=== PATIENT | male | born 1990 | race Caucasian/White ===

== ENCOUNTER 2016-08-16 13:51 | Emergency (ER) | payer MEDICAID, OTHER ==
[2016-08-16 13:57] VITALS: RESP 16
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
--- NOTE | 2016-08-16 16:18 | DX ---
Left Tibia-Fibula and Left Ankle Clinical History: 25-year-old male with left lower leg pain after a fall. Comparison Study: None. Findings: LEFT TIBIA-FIBULA (4 Views, 3:14 p.m.): There is an obliquely-oriented hairline fracture through the distal fibular diaphysis. There also appears to be a transversely-oriented nondisplaced fracture at the level of the distal fibular metaphysis. There is also a faintly perceptible longitudinally-orient ed linear lucency over the mid-tibial diaphysis, which probably is related to a vascular groove. Does the patient have any pinpoint tenderness in this location? If so, a hairline fracture could be prese nt. Impression: 1. Nondisplaced fractures involving the distal fibular diaphysis and metaphysis. 2. Probable vascular groove projected over the mid-diaphyseal portion of the tibia, although the poss ibility of a hairline fracture is not excluded. Clinical correlation is advised. LEFT ANKLE (3 Views, at 3:06 p.m.): There is soft tissue swelling seen laterally. Again noted are th e obliquely-oriented distal fibular diaphyseal and transversely-oriented distal fibular metaphyseal n ondisplaced fractures. The mortise is still maintained. The talar dome is well-contoured. The subtala r joint is normal. The base of the fifth metatarsal is unremarkable. There is a bone island projected over the distal talus. Impression: Nondisplaced fractures involving the distal fibula.
[2016-08-16 16:31] VITALS: BP 158/86; PULSE 96; TEMP 98.4; O2SAT 93
== END 2016-08-16 16:29 | disposition home or self-care (01) ==
PROC: 2W3RXYZ Immobilization of Left Lower Leg using Other Device (ICD-10-PCS; principal; 2016-08-16)
DX: S82.832A Other fracture of upper and lower end of left fibula, initial encounter for closed fracture (principal); F17.200 Nicotine dependence, unspecified, uncomplicated; X58.XXXA Exposure to other specified factors, initial encounter; Y99.8 Other external cause status; Y93.01 Activity, walking, marching and hiking
CPT/HCPCS: L4386

== ENCOUNTER 2016-10-21 02:05 | Emergency (ER) | payer MEDICAID ==
[2016-10-21 02:17] VITALS: RESP 16; TEMP 97.9
[2016-10-21] MEDS ORDERED: TDAP ADULT 0.5 ML INJ (BOOSTRIX) IM ONE (02:17)
[2016-10-21] MEDS ORDERED: SKIN ADHESIVE (DERMABOND) 1 EACH TP ONE ×2 (02:18→02:20)
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
[2016-10-21 03:08] VITALS: BP 142/80; PULSE 78; O2SAT 97
== END 2016-10-21 03:11 | disposition home or self-care (01) ==
LOC: EDUNIT#
PROC: 0HQDXZZ Repair Right Lower Arm Skin, External Approach (ICD-10-PCS; principal; 2016-10-21)
DX: S41.112A Laceration without foreign body of left upper arm, initial encounter (principal); F10.129 Alcohol abuse with intoxication, unspecified; F17.200 Nicotine dependence, unspecified, uncomplicated; Z23 Encounter for immunization; W22.8XXA Striking against or struck by other objects, initial encounter

== ENCOUNTER 2018-10-31 17:55 | Emergency (ER) | payer MEDICAID, OTHER ==
[2018-10-31] MEDS ORDERED: SILVER NITRATE APPLICATOR 1 APPL TP ONE (18:35)
--- NOTE | 2018-10-31 18:39 | EDPHY ---
General Time Seen by Provider: 10/31/18 18:17 Narrative: CLINICAL IMPRESSION: Avulsion laceration, distal tip of left thumb ASSESSMENT/PLAN: 27-year-old male presents to the emergency department with an avulsion laceration to the distal tip of the left thumb sustained on a kitchen knife at work. Tetanus up-to-date, no suturable laceration, patient was anesthetized in wound was cauterize lightly with silver nitrate and dressed. Wound care reviewed, signs and symptoms of infection discussed, warning signs return to ED outlined discharge. DIFFERENTIAL DIAGNOSIS: includes but not limited to laceration of tendon or vascular structure, underlying fracture, laceration with retained FB ED PROCEDURES: Laceration Repair Verbal consent obtained by patient. Risks discussed, including but not limited to infection, pain, retained foreign body, need for additional repair, poor cosmetic result, tendon damage, nerve damage, poor wound healing, vascular damage. Alternatives to repair discussed. Dutton protocol used to establish correct patient, procedure, equipment, student support services director, and site. Anesthesia obtained by local infiltration. Anesthetized with 1% lidocaine without epinephrine. Laceration location distal tip of left thumb, length 0.5 cm, depth 0.5 mm, Hemostasis achieved with direct pressure and silver nitrate. Wound explored through full range of motion and entire depth of wound probed and visualized with gloved finger. No suspicion for nerve damage, tendon damage, underlying fracture, vascular damage, foreign body, or contamination. Area was cleansed with Shur-Clens and irrigated with sterile saline as per protocol. No foreign body or material removed. Wound care: Clean and dry x 24 hours, gently clean with soap and water, cover with topical antibiotic ointment/bandage. CHIEF COMPLAINT: Laceration HPI: 27-year-old male right-hand dominant presents to the emergency department after he lacerated his left distal thumb on a knife at work. He is right-hand dominant. Tetanus up-to-date. No difficulty with range of motion of the thumb , and sensation intact. No other injuries PAST MEDICAL HISTORY: None reported Pertinent Past Surgical History: None reported Social History: Otherwise healthy, tetanus up-to-date REVIEW OF SYSTEMS: All other systems negative Constitutional: No fever, no chills Musculoskeletal: No deformity, no joint pain Skin: Laceration left thumb Neurological: No sensory loss or weakness, 2 point discrimination intact. PHYSICAL EXAM: General Appearance: Alert, oriented, appropriate for age, cooperative, NAD, well hydrated, non-toxic appearing, VSS, no hypoxia. Neurological: Alert and oriented x 3 Skin: Avulsion Laceration left thumb Musculoskeletal: Full range of motion of the thumb. Distal 2 point discrimination intact. MEDICAL DECISION MAKING: Patient was seen independently. Secondary supervising physician at time of evaluation was Dr. Willis. Diagnosis: Avulsion laceration, distal tip of left thumb . New, requires workup Summary: See assessment and plan for summary of ED visit Patient Progress improved, stable for discharge. - History Smoking Status: Current every day smoker - Objective Vital Signs: Initial Vital Signs Temperature (C) 37 C 10/31/18 17:58 Heart Rate 81 10/31/18 17:58 Respiratory Rate 16 10/31/18 17:58 Blood Pressure 134/72 H 10/31/18 17:58 O2 Sat (%) 96 10/31/18 17:58 O2 Delivery Mode Room Air Allergies/Adverse Reactions: fish derived [Fish derived] Allergy (Intermediate, Verified 10/21/16 02:15) ibuprofen Allergy (Verified 10/21/16 02:15) Home Medications: Medication Instructions Recorded No Medications [NO [place] 0 [place] [facility] [place] Medications Given: Discontinued Medications Silver Nitrate/Potassium Nitrate (Silver Nitrate Applicator) 1 each TP EDNOW ONE Stop: 10/31/18 18:36 Last Admin: 10/31/18 18:44 Dose: 1 each Departure - Departure Disposition: Home, Routine, Self-Care Clinical Impression: Thumb laceration Qualifiers: Encounter type: initial encounter Damage to nail status: without damage Foreign body presence: without foreign body Laterality: left Qualified Code(s): S61.012A - Laceration without foreign body of left thumb without damage to nail , initial encounter Condition: Good Instructions: Laceration (ED) Additional Instructions: DISCHARGE INSTRUCTIONS FROM YOUR DOCTOR Thank you for visiting our emergency department today. You were treated by a physician resident programs assistant today and your case was reviewed with our ED Attending physician. Please keep in mind that discharge from the emergency department does not mean that there is nothing wrong - it simply means that we have not identified an emergency condition that requires further evaluation or treatment in the hospital. You should always plan to follow up with primary care for re- evaluation of your condition in the next 2-3 days. If you have been referred to a specialist, please call as soon as possible (today or tomorrow) to schedule your follow up appointment at the appropriate time. KEEP WOUND CLEAN. COVER WITH ANTIBIOTIC OINTMENT AND BANDAGE. WEAR GLOVES AT WORK. RETURN TO ED FOR INCREASED PAIN, SWELLING, REDNESS, WARMTH, DISCHARGE, FEVERS, OR ANY OTHER CONCERNS FOR INFECTION. People present with illnesses and injuries in different ways, and it is always possible that we have missed something. You may always return for re-evaluation if symptoms worsen or if they are not improving or if you develop new/different symptoms. Again, thank you for choosing our emergency department. We hope that you feel better. Referrals: NONE *PRIMARY CARE P,. [Primary Care Provider] - As per Instructions Hermelindo Hernandez, [Doctor of Osteopathy] - 1-2 days without fail
[2018-10-31 19:41] VITALS: BP 122/85
== END 2018-10-31 19:20 | disposition home or self-care (01) ==
PROC: 0HQGXZZ Repair Left Hand Skin, External Approach (ICD-10-PCS; principal; 2018-10-31)
DX: S61.012A Laceration without foreign body of left thumb without damage to nail, initial encounter (principal); W26.0XXA Contact with knife, initial encounter; Y93.G1 Activity, food preparation and clean up; Y99.0 Civilian activity done for income or pay